=== PATIENT | male | born 1995 | race African-American/Black ===

== ENCOUNTER 2019-03-04 08:16 | Emergency (ER) | payer SELFPAY ==
[~2019-03-04] VITALS: Ht 172.7 cm; Wt 70.0 kg
[~2019-03-04 08:16] MED LIST: ALBUTEROL
[2019-03-04 08:36] VITALS: BP 121/70
== END 2019-03-04 10:11 | disposition left against medical advice (07) ==
LOC: ER 08:16
DX: Z53.21 Procedure and treatment not carried out due to patient leaving prior to being seen by health care provider (principal)